=== PATIENT | female | born 1955 | race Caucasian/White ===

== ENCOUNTER → 2020-05-21 | Outpatient (CLI) | payer OTHER ==
[~2020-05-21] MED LIST: BARIUM SULFATE 340 GM SUSPENSION. PO ONE; BARIUM SULFATE 40% (APPLE) 148 GM PWD. PO ONE; BARIUM SULFATE 60% 355 ML SUSP PO ONE; PANT20TA2 PO; SIMETHICONE/SOD BICARB/CITRIC ACID PACKET. PO ONE
--- NOTE | 2020-05-21 14:56 | RAD ---
EXAM: Video swallow evaluation. HISTORY: Dysphagia. Choking. Coughing. TECHNIQUE: Fluoroscopic imaging was performed during the oral administration of barium contrast of varying consistencies in coordination with a speech pathologist. 0 fluoroscopically spot images were obtained. The total fluoroscopy time was 2 minutes. COMPARISON: Correlation is made with a barium esophagram obtained on the same date. FINDINGS: There is no evidence of aspiration. There is trace penetration with and slight barium coating of the valleculae. There is elicitation of a cough reflex during the exam. IMPRESSION: No evidence of aspiration. Please refer to the separate report by the speech pathologist for clinical recommendations and the separate report for the barium esophagram on the same date for additional findings. Electronically signed by: Halima Kee MD (05/21/2020 2:53 PM) [id number]
--- NOTE | 2020-05-21 15:52 | RAD ---
EXAM: Barium esophagram. HISTORY: Dysphagia, choking and coughing. TECHNIQUE: Fluoroscopic imaging was performed in multiple positions and obliquities during the oral administration of barium contrast. Effervescent crystals were administered for dedicated air contrast views. 7 fluoroscopic images were obtained for total fluoroscopy time of 1.5 minute. COMPARISON: Video swallow evaluation obtained on the same date. CT dated 04/15/2013. FINDINGS: There is no evidence of aspiration or penetration. The esophagus is normal in caliber. No esophageal mucosal lesion is seen. There is no hiatal hernia. There is normal transit of contrast into the stomach. The gastric contour and mucosal pattern are unremarkable. There is a peripherally calcified lesion within the left upper quadrant measuring approximately 1.9 cm. This is consistent with a splenic artery aneurysm demonstrated on the CT dated 04/15/2013. There has been no significant interval change in the size of this lesion. There is a small amount of gastroesophageal reflux to the proximal esophagus with recumbent positioning. IMPRESSION: 1. Gastroesophageal reflux to the proximal esophagus in the recumbent position. 2. Otherwise, relatively unremarkable barium esophagram. 3. 1.9 cm peripherally calcified splenic artery aneurysm. This is unchanged compared to a CT dated 04/15/2013. Electronically signed by: Halima Kee MD (05/21/2020 3:48 PM) [id number]
== END ==
LOC: RAD 13:59
PROVIDERS: ATTEND Internal Medicine Gastroenterology
DX: K21.9 Gastro-esophageal reflux disease without esophagitis (principal); I72.8 Aneurysm of other specified arteries
CPT/HCPCS: 74220; 74230; 92611-GN